=== PATIENT | male | born 1940 | race Hispanic/Latino ===

== ENCOUNTER 2021-05-06 14:59 | Outpatient (CLI) | payer OTHER ==
[2021-05-07 19:15] LABS: SARS-CoV-2 PCR by NAA Not Detected (NotDetected)
== END 2021-05-06 15:00 | disposition home or self-care (01) ==
LOC: LABBT 14:59
PROVIDERS: ATTEND Physician Assistant Medical
DX: Z01.812 Encounter for preprocedural laboratory examination (principal); R13.10 Dysphagia, unspecified; Z93.1 Gastrostomy status; Z20.822 Contact with and (suspected) exposure to COVID-19
CPT/HCPCS: U0003; U0005

== ENCOUNTER 2021-05-16 15:12 | Outpatient (CLI) | payer MEDICAID ==
[2021-05-17 09:00] LABS: SARS-CoV-2 PCR by NAA Not Detected (NotDetected)
== END 2021-05-16 15:13 | disposition home or self-care (01) ==
LOC: LABBT 15:12
PROVIDERS: ATTEND Family Medicine
DX: Z01.812 Encounter for preprocedural laboratory examination (principal); Z20.822 Contact with and (suspected) exposure to COVID-19
CPT/HCPCS: U0003; U0005

== ENCOUNTER 2021-05-18 12:34 | Outpatient (CLI) | payer OTHER | END 2021-05-18 12:35 | disposition home or self-care (01) | PROVIDERS: ATTEND Physician Assistant Medical | DX: I69.891 Dysphagia following other cerebrovascular disease (principal); R13.13 Dysphagia, pharyngeal phase; Z93.1 Gastrostomy status | CPT/HCPCS: 74230 ==